=== PATIENT | male | born 1945 | race Caucasian/White ===

== ENCOUNTER 2024-04-10 10:57 | Outpatient (CLI) | payer MEDICARE, SELFPAY | END 2024-04-10 10:58 | disposition home or self-care (01) | LOC: ANHAUDASC 10:58 | PROVIDERS: PCP Family Medicine; Visit Provider Otolaryngology | DX: H90.6 Mixed conductive and sensorineural hearing loss, bilateral (principal); H61.22 Impacted cerumen, left ear; H65.492 Other chronic nonsuppurative otitis media, left ear; J31.0 Chronic rhinitis | CPT/HCPCS: 92557; 92567 ==

== ENCOUNTER 2024-09-25 05:54 | Emergency (ER) | payer MEDICARE, SELFPAY ==
--- NOTE | ~2024-09-25 | CT_ITS ---
CT of the Abdomen and Pelvis: Indication: Abdominal pain Technique: 2.5 mm axial scans were obtained through the abdomen and pelvis following intravenous adm inistration of 100 cc of Omnipaque 350. Dose reduction technique was used on this scan by utilizing a utomated exposure control and iterative reconstruction technique. The dose-length product (DLP) was 4 84.67 mGy-cm. Findings: Scans through the lung bases are unremarkable. The liver, spleen, pancreas, gallbladder, adrenals and kidneys are within normal limits. No evidence of aortic aneurysm. No lymphadenopathy. No bowel obstruction or bowel wall thickening. There is no evidence to suggest acute appendicitis. Images through the pelvis were performed. 4 mm urinary bladder stone noted. Prostate gland is markedl y enlarged. Impression: No acute abnormality. 4 mm urinary bladder stone. Markedly enlarged prostate gland. Reviewed, dictated and finalized at [facility]. [facility] [place] [employer] Impression: No acute abnormality. 4 mm urinary bladder stone. Markedly enlarged prostate gland.
[2024-09-25 05:54] VITALS: BP 140/65; PULSE 76; RESP 20; TEMP 36.2; O2SAT 100
--- NOTE | 2024-09-25 05:58 | PC.NURSE ---
PATEINT REQUESTED A URINAL. GIVEN. AT THE BEDSIDE
--- NOTE | 2024-09-25 06:03 | PC.NURSE ---
DR AMARAL AT THE BEDSIDE
--- NOTE | 2024-09-25 06:12 | ED_ITS ---
HPI - Abdominal Pain General Chief Complaint: Abdominal Pain <Reinaldo Almonte MD - Last Filed: 09/25/24 06:19> Stated Complaint: abdominal pain <Reinaldo Almonte MD - Last Filed: 09/25/24 06:19> Time Seen by Provider: 09/25/24 05:59 <Reinaldo Almonte MD - Last Filed: 09/25/24 06:19> Source: patient <Reinaldo Almonte MD - Last Filed: 09/25/24 06:19> Mode of arrival: ambulatory <Reinaldo Almonte MD - Last Filed: 09/25/24 06:19> Limitations: no limitations <Reinaldo Almonte MD - Last Filed: 09/25/24 06:19> History of Present Illness HPI narrative: patient is a 79-year-old male with a significant past medical history that presents today for abdominal pain. Patient has right lower quadrant abdominal pain this started about 1:00 a.m. this morning. He states it is very painful. He has also has some nausea and vomiting as well. He denies any constipation diarrhea. He denies any fevers or systemic symptoms. He said he has never had pain like this before. He does still have his appendix and his gallbladder. <Reinaldo Almonte MD - Last Filed: 09/25/24 06:19> MD elicited complaint: abdominal pain <Reinaldo Almonte MD - Last Filed: 09/25/24 06:19> Pertinent past history: none <Reinaldo Almonte MD - Last Filed: 09/25/24 06:19> Onset (ago): hour(s) <Reinaldo Almonte MD - Last Filed: 09/25/24 06:19> Pain Consistency: constant <Reinaldo Almonte MD - Last Filed: 09/25/24 06:19> Location: RLQ <Reinaldo Almonte MD - Last Filed: 09/25/24 06:19> Severity: moderate <Reinaldo Almonte MD - Last Filed: 09/25/24 06:19> Quality: cramping and stabbing <Reinaldo Almonte MD - Last Filed: 09/25/24 06:19> Radiation: none <Reinaldo Almonte MD - Last Filed: 09/25/24 06:19> Migration to: no migration <Reinaldo Almonte MD - Last Filed: 09/25/24 06:19> Exacerbating factors: eating <Reinaldo Almonte MD - Last Filed: 09/25/24 06:19> Relieving factors: nothing <Reinaldo Almonte MD - Last Filed: 09/25/24 06:19> Associated symptoms: denies other symptoms <Reinaldo Almonte MD - Last Filed: 09/25/24 06:19> Related Data Home Medications: Home Medications Medication Instructions Recorded Confirmed amlodipine 10 mg tablet 10 mg PO DAILY 11/03/19 04/02/24 apixaban 5 mg tablet (Eliquis) 5 mg PO BID 11/03/19 04/02/24 atorvastatin 20 mg tablet 20 mg PO DAILY 11/03/19 04/02/24 aspirin 81 mg tablet,delayed 81 mg PO DAILY 02/12/24 04/02/24 release hydrochlorothiazide 25 mg tablet 25 mg PO DAILY 02/12/24 04/02/24 losartan 50 mg tablet 100 mg PO DAILY 02/12/24 04/02/24 vitamins A,C,[id number] 4,296 1 cap PO BID 02/12/24 04/02/24 mcg-226 mg-90 mg capsule (PreserVision AREDS) <Reinaldo Almonte MD - Last Filed: 09/25/24 06:19> Allergies/Adverse Reactions: Allergies Allergy/AdvReac Type Severity Reaction Status Date / Time No Known Allergies Allergy Verified 04/01/24 14:59 <Reinaldo Almonte MD - Last Filed: 09/25/24 06:19> Review of Systems Review of Systems: All systems reviewed & are unremarkable except as noted in HPI and below <Reinaldo Almonte MD - Last Filed: 09/25/24 06:19> Constitutional: Constitutional: Reports as per HPI <Reinaldo Almonte MD - Last Filed: 09/25/24 06:19> Eyes: Eyes: Reports no additional eye complaints <Reinaldo Almonte MD - Last Filed: 09/25/24 06:19> ENT: Reports system reviewed and no additional complaints, except as docum ented <Reinaldo Almonte MD - Last Filed: 09/25/24 06:19> Cardiovascular: Cardiovascular: Reports no additional cardiovascular complaints <Reinaldo Almonte MD - Last Filed: 09/25/24 06:19> Respiratory: Respiratory: Reports no additional respiratory complaints <Reinaldo Almonte MD - Last Filed: 09/25/24 06:19> Gastrointestinal: Gastrointestinal: Reports as per HPI and Reports abdominal pain <Reinaldo Almonte MD - Last Filed: 09/25/24 06:19> Genitourinary: Genitourinary: Reports no additional male genitourinary complaints <Reinaldo Almonte MD - Last Filed: 09/25/24 06:19> Musculoskeletal: Musculoskeletal: Reports no additional musculoskeletal complaints <Reinaldo Almonte MD - Last Filed: 09/25/24 06:19> Integumentary/Breasts: Skin/Breast: Reports system reviewed and no additional complaints, except as docu <Reinaldo Almonte MD - Last Filed: 09/25/24 06:19> Neurologic: Reports system reviewed and no additional complaints, except as documented <Reinaldo Almonte MD - Last Filed: 09/25/24 06:19> Psychiatric: Psychiatric: Reports no additional psychiatric complaints <Reinaldo Almonte MD - Last Filed: 09/25/24 06:19> Endocrine: Endocrine: Reports no additional endocrine complaints <Reinaldo Almonte MD - Last Filed: 09/25/24 06:19> Hematologic/Lymphatic: Hematologic/Lymphatic: Reports no additional marylou tologic/lymphatic complaints <Reinaldo Almonte MD - Last Filed: 09/25/24 06:19> Allergic/Immunologic: Allergic/Immunologic: Reports no additional allergic/immunologic complaints <Reinaldo Almonte MD - Last Filed: 09/25/24 06:19> PMFSH Past Medical History Medical History: Medical History (Updated 09/25/24 @ 07:18 by Tin Guerin MD) Afib HTN (hypertension) <Reinaldo Almonte MD - Last Filed: 09/25/24 06:19> Family History Family History: Family History Father Diabetes mellitus Hypertension Heart disease Sibling Diabetes mellitus Hypertension <Reinaldo Almonte MD - Last Filed: 09/25/24 06:19> Social History Social History: Social History Smoking status: Former smoker Smoking end date: 11/13/76 Alcohol intake: current Substance use: never Substance use type: does not use Do You Feel Safe in your Home?: Yes Lack of Transportation: No Lack of Food: Never True Current Housing: I Have Housing Concerned About Future Housing: No Difficulty Paying Gas/Electric Bills: No Difficulty Paying for Meds: No Currently Unemployed: No Education: Master's Degree or Higher Difficulty w/ Childcare or Family Care: No Gender identity (if verbalized by the patient): Male <Reinaldo Almonte MD - Last Filed: 09/25/24 06:19> Exam Const: General: healthy appearing, no acute distress, alert and confusion <Reinaldo Almonte MD - Last Filed: 09/25/24 06:19> HENMT: Head: normal to inspection <Reinaldo Almonte MD - Last Filed: 09/25/24 06:19> Ears: external ears normal <Reinaldo Almonte MD - Last Filed: 09/25/24 06:19> Face/Nose/Sinus: Normal external nose present <Reinaldo Almonte MD - Last Filed: 09/25/24 06:19> Face and sinus: normal facial exam <Reinaldo Almonte MD - Last Filed: 09/25/24 06:19> Eyes: Conjunctivae: conjunctivae normal <Reinaldo Almonte MD - Last Filed: 09/25/24 06:19> Pupils: Equal, round and reactive pupils present <Reinaldo Almonte MD - Last Filed: 09/25/24 06:19> Neck: Neck: normal visual inspection <Reinaldo Almonte MD - Last Filed: 09/25/24 06:19> Chest: Chest palpation & inspection: normal inspection of the chest <Reinaldo Almonte MD - Last Filed: 09/25/24 06:19> Resp: Effort & Inspection: normal respiratory effort <Reinaldo Almonte MD - Last Filed: 09/25/24 06:19> Auscultation: clear to auscultation bilaterally <Reinaldo Almonte MD - Last Filed: 09/25/24 06:19> Cardio: Rate: regular rate <Reinaldo Almonte MD - Last Filed: 09/25/24 06:19> Rhythm: regular rhythm <Reinaldo Almonte MD - Last Filed: 09/25/24 06:19> GI: GI Palp: Yes Tenderness to palpation present (GI), Yes Guarding due to palpation present (GI) and Yes Rebound tenderness present <Reinaldo Almonte MD - Last Filed: 09/25/24 06:19> Back/Spine/Pelvis: Back: no CVA tenderness <Reinaldo Almonte MD - Last Filed: 09/25/24 06:19> Skin: General skin exam: normal color <Reinaldo Almonte MD - Last Filed: 09/25/24 06:19> Rashes: no rashes <Reinaldo Almonte MD - Last Filed: 09/25/24 06:19> Wounds: no wounds <Reinaldo Almonte MD - Last Filed: 09/25/24 06:19> Neuro: General: patient oriented x3 <Reinaldo Almonte MD - Last Filed: 09/25/24 06:19> Cranial nerves: Yes Nystagmus not present <Reinaldo Almonte MD - Last Filed: 09/25/24 06:19> Speech: normal speech <Reinaldo Almonte MD - Last Filed: 09/25/24 06:19> Gait exam (Neuro): Normal gait present <Reinaldo Almonte MD - Last Filed: 09/25/24 06:19> Extrem: General: normal to inspection <Reinaldo Almonte MD - Last Filed: 09/25/24 06:19> Psych: Mental Status: mental status grossly normal <Reinaldo Almonte MD - Last Filed: 09/25/24 06:19> Affect: normal affect <Reinaldo Almonte MD - Last Filed: 09/25/24 06:19> Attitude: cooperative <Reinaldo Almonte MD - Last Filed: 09/25/24 06:19> Course Course Emergency Course: Abdominal pain-- normal white count. abdominal examination is unremarkable. CT of the abdomen revealed a 4 mm bladder stone without any other acute findings. <Tin Guerin MD - Last Filed: 09/25/24 07:18> Vital Signs Vital signs: Vital Signs Temperature 36.2 C L 09/25/24 05:54 Pulse Rate 76 09/25/24 05:54 Respiratory Rate 20 09/25/24 05:54 Blood Pressure 140/65 09/25/24 05:54 Pulse Oximetry 100 09/25/24 05:54 Oxygen Delivery Room Air 09/25/24 05:54 Temperature 36.2 C L 09/25/24 05:54 Pulse Rate 54 L 09/25/24 06:39 Respiratory Rate 18 09/25/24 06:39 Blood Pressure 147/67 H 09/25/24 06:39 Pulse Oximetry 100 09/25/24 06:39 Oxygen Delivery Room Air 09/25/24 06:39 <Reinaldo Almonte MD - Last Filed: 09/25/24 06:19> Vital Signs Temperature 36.2 C L 09/25/24 05:54 Pulse Rate 76 09/25/24 05:54 Respiratory Rate 20 09/25/24 05:54 Blood Pressure 140/65 09/25/24 05:54 Pulse Oximetry 100 09/25/24 05:54 Oxygen Delivery Room Air 09/25/24 05:54 Temperature 36.2 C L 09/25/24 05:54 Pulse Rate 54 L 09/25/24 06:39 Respiratory Rate 18 09/25/24 06:39 Blood Pressure 147/67 H 09/25/24 06:39 Pulse Oximetry 100 09/25/24 06:39 Oxygen Delivery Room Air 09/25/24 06:39 <Tin Guerin MD - Last Filed: 09/25/24 07:18> MDM - Abdominal Pain MDM Narrative Medical decision making narrative: Patient is with lower quadrant abdominal pain since early this morning. Has nausea vomiting. Possible differentials her appendicitis, gastroenteritis, diverticulitis. He does have some rebound tenderness in the right lower quadrant area is possible could be some appendicitis. Lue CT scan abdomen pelvis with contrast. Will also do full blood panel also give IV fluids and some Toradol for pain. Will base treatment off of the results of the CT scan. <Reinaldo Almonte MD - Last Filed: 09/25/24 06:19> Differential Diagnosis Differential diagnosis: Likely abdominal pain and acute appendicitis <Reinaldo Almonte MD - Last Filed: 09/25/24 06:19> Medical Records Attestation: I reviewed the patient's medical records. <Reinaldo Almonte MD - Last Filed: 09/25/24 06:19> Lab Data Attestation: I reviewed the patient's lab results. <Reinaldo Almonte MD - Last Filed: 09/25/24 06:19> Result diagrams: 09/25/24 06:03 09/25/24 06:05 <Reinaldo Almonte MD - Last Filed: 09/25/24 06:19> Labs: Lab Results 09/25/24 09/25/24 Range/Units 06:03 06:05 WBC 6.2 (4.8-10.8) K/mm3 RBC 4.90 (4.70-6.10) M/mm3 Hgb 14.7 (12.4-15.3) g/dL Hct 42.3 (37.0-46.0) % MCV 86.3 (78.0-102.0) fL MCH 30.0 (27.0-31.0) pg MCHC 34.8 (32-36) g/dL RDW 12.6 (11.6-14.4) % Plt Count 216 (150-420) K/mm3 MPV 9.6 (8.7-11.0) fl Immature Gran % (Auto) 0.2 H (0.0-0.0) % Neut % (Auto) 69.7 (50.0-70.0) % Lymph % (Auto) 20.8 (18.0-42.0) % [place] % (Auto) 8.1 (2.0-11.0) % Eos % (Auto) 0.7 L (1.0-6.0) % Baso % (Auto) 0.5 (0.0-1.0) % Lymph # (Auto) 1.28 (1.10-4.50) K/mm3 [place] # (Auto) 0.50 (0.10-0.90) K/mm3 Eos # (Auto) 0.04 (0.02-0.50) K/mm3 Baso # (Auto) 0.03 (0.00-0.10) K/mm3 Abs Immat Gran (auto) 0.01 H (0.00-0.00) K/mm3 Absolute Neuts (auto) 4.29 (1.70-7.20) K/mm3 Absolute Nucleated RBC 0.00 (0.00-0.00) K/mm3 Nucleated RBC % 0.0 (0-0.0) % Sodium 140 (136-145) mmol/L Potassium 2.9 L (3.5-5.1) mmol/L Chloride 101 (98-108) mmol/L Carbon Dioxide 26 (21-32) mmol/L Anion Gap 13 H (4-12) mmol/L BUN 19 H (7-18) mg/dL Creatinine 1.21 (0.70-1.30) mg/dL Estim Creat Clear Calc 44 ml/min Estimated GFR 58 L (59 - ) Glucose 154 H (70-99) mg/dL Calculated Osmolality 295 (285-295) mOsm/kg Lactic Acid 3.4 H (0.4-2.0) mmol/L Calcium 9.8 (8.5-10.1) mg/dL Total Bilirubin 0.7 (0.00-1.00) mg/dL AST 15 (15-37) U/L ALT 27 (16-63) U/L Alkaline Phosphatase 58 (46-116) U/L Total Creatine Kinase 149 (39-308) U/L Total Protein 7.1 (6.4-8.2) g/dL Albumin 3.8 (3.4-5.0) g/dL Lipase 31 (16-77) U/L Urine Color Light yellow (Yellow) Urine Appearance Sl cloudy A (Clear) Urine pH 6.5 (5.0-8.0) Ur Specific [place] 1.015 (1.010-1.020) Urine Protein Negative (Negative) Urine Glucose (UA) Negative (Negative) Urine Ketones Negative (Negative) Ur Blood (Man) 3+ H (Negative) Urine Nitrate Negative (Negative) Urine Bilirubin Negative (Negative) Urine Urobilinogen 0.2 (0.2-1.0) mg/dL Leukocyte Esterase Rfl Negative (Negative) ABBIE/UL Urine RBC >75 H (0-2) /hpf Urine WBC None seen (0-3) /hpf Urine Bacteria Rare (None) /hpf <Reinaldo Almonte MD - Last Filed: 09/25/24 06:19> Lab Results 09/25/24 09/25/24 Range/Units 06:03 06:05 WBC 6.2 (4.8-10.8) K/mm3 RBC 4.90 (4.70-6.10) M/mm3 Hgb 14.7 (12.4-15.3) g/dL Hct 42.3 (37.0-46.0) % MCV 86.3 (78.0-102.0) fL MCH 30.0 (27.0-31.0) pg MCHC 34.8 (32-36) g/dL RDW 12.6 (11.6-14.4) % Plt Count 216 (150-420) K/mm3 MPV 9.6 (8.7-11.0) fl Immature Gran % (Auto) 0.2 H (0.0-0.0) % Neut % (Auto) 69.7 (50.0-70.0) % Lymph % (Auto) 20.8 (18.0-42.0) % [place] % (Auto) 8.1 (2.0-11.0) % Eos % (Auto) 0.7 L (1.0-6.0) % Baso % (Auto) 0.5 (0.0-1.0) % Lymph # (Auto) 1.28 (1.10-4.50) K/mm3 [place] # (Auto) 0.50 (0.10-0.90) K/mm3 Eos # (Auto) 0.04 (0.02-0.50) K/mm3 Baso # (Auto) 0.03 (0.00-0.10) K/mm3 Abs Immat Gran (auto) 0.01 H (0.00-0.00) K/mm3 Absolute Neuts (auto) 4.29 (1.70-7.20) K/mm3 Absolute Nucleated RBC 0.00 (0.00-0.00) K/mm3 Nucleated RBC % 0.0 (0-0.0) % Sodium 140 (136-145) mmol/L Potassium 2.9 L (3.5-5.1) mmol/L Chloride 101 (98-108) mmol/L Carbon Dioxide 26 (21-32) mmol/L Anion Gap 13 H (4-12) mmol/L BUN 19 H (7-18) mg/dL Creatinine 1.21 (0.70-1.30) mg/dL Estim Creat Clear Calc 44 ml/min Estimated GFR 58 L (59 - ) Glucose 154 H (70-99) mg/dL Calculated Osmolality 295 (285-295) mOsm/kg Lactic Acid 3.4 H (0.4-2.0) mmol/L Calcium 9.8 (8.5-10.1) mg/dL Total Bilirubin 0.7 (0.00-1.00) mg/dL AST 15 (15-37) U/L ALT 27 (16-63) U/L Alkaline Phosphatase 58 (46-116) U/L Total Creatine Kinase 149 (39-308) U/L Total Protein 7.1 (6.4-8.2) g/dL Albumin 3.8 (3.4-5.0) g/dL Lipase 31 (16-77) U/L Urine Color Light yellow (Yellow) Urine Appearance Sl cloudy A (Clear) Urine pH 6.5 (5.0-8.0) Ur Specific [place] 1.015 (1.010-1.020) Urine Protein Negative (Negative) Urine Glucose (UA) Negative (Negative) Urine Ketones Negative (Negative) Ur Blood (Man) 3+ H (Negative) Urine Nitrate Negative (Negative) Urine Bilirubin Negative (Negative) Urine Urobilinogen 0.2 (0.2-1.0) mg/dL Leukocyte Esterase Rfl Negative (Negative) ABBIE/UL Urine RBC >75 H (0-2) /hpf Urine WBC None seen (0-3) /hpf Urine Bacteria Rare (None) /hpf <Tin Guerin MD - Last Filed: 09/25/24 07:18> Imaging Data Radiologist's impression: ITS Impressions Abdomen/Pelvis CT 09/25/24 07:03 Impression: No acute abnormality. 4 mm urinary bladder stone. Markedly enlarged prostate gland. <Reinaldo Almonte MD - Last Filed: 09/25/24 06:19> ITS Impressions Abdomen/Pelvis CT 09/25/24 07:03 Impression: No acute abnormality. 4 mm urinary bladder stone. Markedly enlarged prostate gland. <Tin Guerin MD - Last Filed: 09/25/24 07:18> Discharge Plan Discharge Clinical Impression: Abdominal pain Qualifiers: Abdominal location: right lower quadrant Qualified Code(s): R10.31 - Right lower quadrant pain <Reinaldo Almonte MD - Last Filed: 09/25/24 06:19> Patient Disposition: Home, Self-Care <Reinaldo Almonte MD - Last Filed: 09/25/24 06:19> Condition: Stable <Reinaldo Almonte MD - Last Filed: 09/25/24 06:19> Instructions: Antibiotic Form, Abdominal Pain (ED), Bladder Stones (ED) <Reinaldo Almonte MD - Last Filed: 09/25/24 06:19> Patient Language: Senegalese <Reinaldo Almonte MD - Last Filed: 09/25/24 06:19> Prescriptions: No Action atorvastatin 20 mg tablet 20 mg PO DAILY amlodipine 10 mg tablet 10 mg PO DAILY Eliquis 5 mg tablet 5 mg PO BID losartan 50 mg tablet 100 mg PO DAILY hydrochlorothiazide 25 mg tablet 25 mg PO DAILY aspirin 81 mg tablet,delayed release (DR/EC) 81 mg PO DAILY PreserVision AREDS 4,296 mcg-226 mg-90 mg capsule 1 cap PO BID fluticasone propionate [Flonase Allergy Relief] 50 mcg/actuation spray,suspension 2 spray intranasal BID Qty: 16 3RF Rx Instructions: administer into each nostril. Aim back/up/out <Reinaldo Almonte MD - Last Filed: 09/25/24 06:19> Follow-up/Referrals: Saray,MD Anirudh [Primary Care Provider] - <Reinaldo Almonte MD - Last Filed: 09/25/24 06:19> Time of Disposition: 07:18 <Reinaldo Almonte MD - Last Filed: 09/25/24 06:19> 07:18 <Tin Guerin MD - Last Filed: 09/25/24 07:18>
[2024-09-25 06:18] LABS: Basophils Absolute Auto 0.03 K/mm3 (0.00-0.10); Basophils Percent Auto 0.5 % (0.0-1.0); Eosinophils Absolute Auto 0.04 K/mm3 (0.02-0.50); Eosinophils Percent Auto 0.7 % (1.0-6.0); Hematocrit 42.3 % (37.0-46.0); Hemoglobin 14.7 g/dL (12.4-15.3); Immature Granulocyte Absolute 0.01 K/mm3 (0.00-0.00); Immature Granulocyte Percent A 0.2 % (0.0-0.0); Lymphocytes Absolute Auto 1.28 K/mm3 (1.10-4.50); Lymphocytes Percent Auto 20.8 % (18.0-42.0); Mean Corpuscular HGB Conc 34.8 g/dL (32-36); Mean Corpuscular Volume 86.3 fL (78.0-102.0); Mean Platelet Volume 9.6 fl (8.7-11.0); Monocytes Percent Auto 8.1 % (2.0-11.0); Neutrophils Absolute Auto 4.29 K/mm3 (1.70-7.20); Neutrophils Percent Auto 69.7 % (50.0-70.0); Platelet Count Result 216 K/mm3 (150-420); Red Cell Distribution Width 12.6 % (11.6-14.4); White Blood Count 6.2 K/mm3 (4.8-10.8)
[2024-09-25] MEDS: SODIUM CHLORIDE 0.9% IV 1,000 ML 999 ML IV CONT (06:18)
[2024-09-25 06:20] LABS: Add Urine Microscopic? YES; Appearance Urine Sl Cloudy (Clear); Bilirubin Urine Negative (Negative); Blood Urine 3+ (Negative); Color Urine Light Yellow (Yellow); Glucose Urine UA Negative (Negative); Ketones Urine Negative (Negative); Leukocyte Esterase Ur Negative LEU/UL (Negative); Nitrate Urine Negative (Negative); Protein Urine Negative (Negative); Specific Grav Ur 1.015 (1.010-1.020); Urobilinogen Urine 0.2 mg/dL (0.2-1.0); pH Urine 6.5 (5.0-8.0)
--- NOTE | 2024-09-25 06:21 | PC.NURSE ---
THIS RN BROUGHT TORADOL INTO ROOM AFTER TELLING PATIENT HE WOULD BE GETTING PAIN MEDICATION. PATIENT THEN REPORTS THAT HIS PAIN IS COMPLETELY GONE. RESTING QUIETLY ON STRETCHER. AT HIS SIDE. FACIAL FEATURES CALM AND RELAXED. ARMS CROSSED IN HIS LAP.
[2024-09-25 06:27] LABS: Bacteria Urine Rare /hpf; RBC Urine >75 /hpf (0-2); WBC Urine None seen /hpf (0-3)
[2024-09-25 06:29] LABS: Alanine Aminotransferase 27 U/L (16-63); Albumin Level 3.8 g/dL (3.4-5.0); Alkaline Phosphatase 58 U/L (46-116); Anion Gap 13 mmol/L (4-12); Aspartate Amino Transferase 15 U/L (15-37); Bilirubin,Total 0.7 mg/dL (0.00-1.00); Blood Urea Nitrogen 19 mg/dL (7-18); Calcium 9.8 mg/dL (8.5-10.1); Carbon Dioxide 26 mmol/L (21-32); Chloride 101 mmol/L (98-108); Estimated CRCL calculation 44 ml/min; Estimated Glomerular Filt Rate 58; Glucose 154 mg/dL (70-99); Lipase 31 U/L (16-77); Osmolality Calculated 295 mOsm/kg (285-295); Potassium 2.9 mmol/L (3.5-5.1); Sodium 140 mmol/L (136-145); Total Protein 7.1 g/dL (6.4-8.2)
[2024-09-25 06:32] LABS: Lactic Acid Reflex 3.4 mmol/L (0.4-2.0)
[2024-09-25] MEDS: POTASSIUM CHLORIDE 20 MEQ ER TABLET 40 MEQ PO (06:35)
[2024-09-25 06:39] VITALS: BP 147/67; PULSE 54; RESP 18; O2SAT 100
--- NOTE | 2024-09-25 06:39 | PC.NURSE ---
PATIENT BEING TRANSPORTED TO CT VIA WHEEL CHAIR. AT THE BEDSIDE. PATIENT WAS OFFERED BLANKETS. REFUSED BLANKETS
[2024-09-25 06:45] LABS: Creatine Kinase 149 U/L (39-308)
--- NOTE | 2024-09-25 07:01 | PC.NURSE ---
REPORT GIVEN TO RANGEL SOTO
[2024-09-25 07:31] VITALS: BP 143/61; PULSE 51; RESP 18; TEMP 36.6; O2SAT 98
[2024-09-25 07:49] LABS: Reflex Lactic Acid Yes or No No Lactic Reflex
== END 2024-09-25 07:36 | disposition home or self-care (01) ==
PROVIDERS: Emergency Provider Family Medicine; PCP Family Medicine
DX: R10.31 Right lower quadrant pain (principal); I48.91 Unspecified atrial fibrillation; I10 Essential (primary) hypertension; Z87.891 Personal history of nicotine dependence
CPT/HCPCS: 36415; 74177; 80053; 81001; 82550; 83605; 83690; 85025; 96360; 99284; A9270; J1885; J7030; Q9967